=== PATIENT | male | born 1965 | race Caucasian/White ===

== ENCOUNTER 2019-11-16 05:33 | Emergency (ER) | payer OTHER, SELFPAY ==
[2019-11-16 05:37] VITALS: BP 154/109; PULSE 81; RESP 16; TEMP 35.7; O2SAT 98; BMI 21.5
--- NOTE | 2019-11-16 05:43 | PC.NURSE ---
EKG done at 0542 and shown to ER doctor
--- NOTE | 2019-11-16 05:46 | XRR_ITS ---
PROCEDURE INFORMATION: Exam: XR Chest, 1 View Exam date and time: 11/16/2019 6:21 AM Age: 53 years old Clinical indication: Other: Arrhythmia/palpitations; Patient HX: Not feeling well x 2 weeks. Heart palpitations and arrhythmia; Additional info: Cp TECHNIQUE: Imaging protocol: XR of the chest Views: 1 view. COMPARISON: No relevant prior studies available. FINDINGS: Lungs: Emphysematous change and interstitial prominence. Pleural space: No pleural effusion. Heart/Mediastinum: No cardiomegaly. Bones/joints: Unremarkable. XR/XR chest 1V portable [id number] IMPRESSION: Emphysematous change and interstitial prominence.
--- NOTE | 2019-11-16 05:46 | ECG_ITS ---
[facility] Test Date: 2019-11-16 Pat Name: Sanchez Woodall Department: Room: Gender: Male Clerk: : 1965 Requested By: Laura Bennett Order Number: [id number] Truong MD: Sruthi Balderas M.D. Measurements Intervals [place] Rate: 75 P: 85 [place]: 156 QRS: 89 QRSD: 120 T: 67 QT: 411 QTc: 462 Interpretive Statements SINUS RHYTHM POSSIBLE LEFT ATRIAL ENLARGEMENT [-0.1mV P WAVE IN V1/V2] POSSIBLE RIGHT VENTRICULAR CONDUCTION DELAY [RSR (QR) IN V1/V2] POSSIBLE INFERIOR MYOCARDIAL INFARCTION , PROBABLY OLD [30 ms Q WAVE IN II/aVF] No previous ECG available for comparison Electronically Signed On 11-17-2019 8:27:26 CDT by Sruthi Balderas M.D. [id number] charles
[2019-11-16 06:15] VITALS: BP 141/94; PULSE 70; RESP 18; O2SAT 99
[2019-11-16 06:21] LABS: Basophils % 0.2 %; Eosinophils # 0.1 10^3/uL (0.0-0.8); Eosinophils % 2.6 %; Hematocrit 47.4 % (42.0-52.0); Hemoglobin 15.5 g/dL (11.7-16.6); Lymphocytes # 1.6 10^3/uL (0.8-4.8); Lymphocytes % 30.1 %; Mean Corpuscular HGB Conc 32.7 g/dL (30.0-36.0); Mean Corpuscular Hemoglobin 31.3 pg (28.0-34.0); Mean Corpuscular Volume 95.6 fL (80-94); Monocytes # 0.4 10^3/uL (0.2-0.9); Monocytes % 7.6 %; Neutrophils % 59.3 %; Nucleated Red Blood Cells % 0 %; Platelet Count 257 10^3/cmm (130-400); Red Blood Count 4.96 10^6/uL (4.1-5.3); Red Cell Distribution Width 11.8 % (12.1-15.1); White Blood Count 5.4 10^3/uL (4.0-10.0)
[2019-11-16 06:33] LABS: Alanine Aminotransferase 11 U/L (0-41); Albumin Level 4.8 g/dL (3.5-5.2); Alkaline Phosphatase 69 IU/L (40-130); Anion Gap 14.8 (5-19); Aspartate Amino Transferase 14 U/L (0-40); Blood Urea Nitrogen 15 mg/dL (6-20); Calcium 9.3 mg/dL (8.5-10.5); Carbon Dioxide 26 mmol/L (22-29); Chloride 102 mmol/L (98-107); Globulin 2.7 g/dL (1.3-4.6); Glomerular Filtration Rate 100.4 mL/min (90-130); Glucose 116 mg/dL (65-115); Osmolality Calculated 290 mOsm/kg (285-295); Potassium 3.8 mmol/L (3.5-5.1); Sodium 139 mmol/L (136-145); Total Bilirubin 0.9 mg/dL (0.15-1.2); Total Protein 7.5 g/dL (6.6-8.7)
[2019-11-16 06:36] LABS: Troponin(5th) Baseline 6 ng/L (0-15)
--- NOTE | 2019-11-16 06:36 | ED_ITS ---
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 He presents today with a couple weeks of generally not feeling well. He noted some low-grade fever and cough a couple of weeks ago and since then has just felt very drained and fatigued. The past several nights he has had trouble sleeping due to palpitations every time he lays down. He has a questionable history of Brugada syndrome. He was diagnosed with it in 2010 after he had a syncopal episode at an urgent care. At that time he was ill with the flu. He was told that he had cardiac arrest but is unsure if that is accurate. He had a cardiac cath at that time which was negative. He wore a LifeVest for some time but since then has had other strategic marketing specialist said they did not think that he had Brugada's. He said after that incident in 2010 he had nighttime palpitations when he laid on his left side for about 4 years. That resolved and he has not had that problem again until just recently. Now anytime he lays down in any position he feels like he is having palpitations. He does not have pain with it but does have a tight sensation that goes up the back of his neck. He has no family history of Brugada or early sudden unexplained . He was not tested for COVID during the time when he had the fever and other symptoms. He denies any other current symptoms except for extreme daytime fatigue. He said he feels like he is dragging someone around wi th him. complaint: rapid heart beat, palpitations and irregular heart beat Onset (ago): week(s) (2, progressively getting worse) Duration: intermittent Severity: severe (Keeps him awake) Context: occurred during rest Arrhythmia history: other (Possible history of Brugada syndrome) Associated symptoms: Reports other (Extreme fatigue); Deny nausea or vomiting Review of Systems General: Reports: 10 or more systems reviewed and unremarkable except in HPI and below Const: Reports: fever(s) (A few weeks ago not current), fatigue, malaise, change in sleep pattern and daytime sleepiness; Denies: chills Eyes: Denies: change in vision ENMT: Denies: odynophagia Card: Reports: palpitations and irregular heart rhythm; Denies: chest pain or swelling of feet/ankles Resp: Denies: dyspnea, productive cough or non-productive cough GI: Denies: abdominal pain, nausea or vomiting : Denies: flank pain Musc: Denies: neck pain or back pain Skin/Breast: Denies: rash Neuro: Denies: headache(s), numbness in extremities or weakness in extremities Alfonso/Lymph: Denies: easy bruising or easy bleeding PFS ED PFSH: Medical History (Updated 11/16/19 @ 10:48 by Cherry Hernandez MD) Brugada syndrome Physical Exam Const: COMMON NORMALS: no acute distress, patient oriented x3, no limitations and alert GENERAL APPEARANCE: cooperative and comfortable HENMT: HEAD & SCALP: normal to inspection FACE & SINUS: normal facial exam Eye: GENERAL EYE: appearance normal, both eyes and all related structures Neck/C-Spine: COMMON NORMALS: supple, no meningeal signs and no JVD Chest: COMMONS NORMALS: normal inspection of the chest Resp: COMMON NORMALS: normal respiratory effort, No use of accessory muscles and clear to auscultation bilaterally AUSCULTATION: clear to auscultation bilaterally Cardio: COMMON NORMALS: no JVD, regular rate, regular rhythm and No murmurs present (Cardio) RATE: regular rate RHYTHM: regular rhythm GI: COMMON NORMALS: Normal to inspection, nondistended, normoactive bowel sounds present, Soft to palpation and non-tender INSPECTION: Yes normal to inspection AUSCULTATION: Yes normoactive bowel sounds PALPATION: Yes Soft to palpation Back/Pelvis: COMMON NORMALS: thoracic and lumbar spine normal to inspection Extremity: COMMON NORMALS: normal to inspection Neuro: COMMON NORMALS: patient oriented x3, moves all extremities, no focal motor deficits and no sensory deficits noted SENSORIUM/ORIENTATION: Yes alert MENINGEAL SIGNS: Yes no meningeal signs Psych: COMMON NORMALS: mental status grossly normal, cooperative and normal affect Skin: COMMON NORMALS: no rashes or lesions noted and turgor normal GENERAL SKIN EXAM: no rashes or lesions noted and turgor normal Course ED course: The patient was observed in the ED for quite some time. His troponins were negative. His EKG was normal as far as ischemia. His first EKG did suggest a potential Brugada's pattern. He had no arrhythmias noted while he was here. He did have some symptoms of feeling uncomfortable laying down. I spoke with the strategic marketing specialist on-call, Dr. Richter who agreed to follow-up closely. He agreed that he did not necessarily need to stay in the hospital. I tried to schedule a Holter monitor to be placed today but apparently they do not do that on Fridays. That cannot be done until Tuesday. I did put the order in but hopefully he will of seen cardiology before that. He understands to return if anything is new or different or worse. I did COVID test him as well mostly because of his previous symptoms as he is not currently symptomatic. COVID is known to affect the heart and this would be relevant information. Vital Signs: Vital signs: Vital Signs Temperature 96.2 F L 11/16/19 05:37 Pulse Rate 73 11/16/19 11:53 Respiratory Rate 16 11/16/19 11:53 Blood Pressure 126/76 11/16/19 11:53 Pulse Oximetry 98 11/16/19 11:53 MDM - Arrhythmia/Palpitations Lab Data: Labs: Lab Results 11/16/19 11/16/19 11/16/19 Range/Units 05:55 05:55 05:55 WBC 5.4 (4.0-10.0) 10^3/ uL RBC 4.96 (4.1-5.3) 10^6/u L Hgb 15.5 (11.7-16.6) g/dL Hct 47.4 (42.0-52.0) % MCV 95.6 H (80-94) fL MCH 31.3 (28.0-34.0) pg MCHC 32.7 (30.0-36.0) g/dL RDW 11.8 L (12.1-15.1) % Plt Count 257 (130-400) 10^3/c mm MPV 9.0 (7.4-10.4) fL Neut % (Auto) 59.3 % Lymph % (Auto) 30.1 % Glades % (Auto) 7.6 % Eos % (Auto) 2.6 % Baso % (Auto) 0.2 % Neut # (Auto) 3.20 (1.8-7.7) 10^3/u L Lymph # (Auto) 1.6 (0.8-4.8) 10^3/u L Glades # (Auto) 0.4 (0.2-0.9) 10^3/u L Eos # (Auto) 0.1 (0.0-0.8) 10^3/u L Baso # (Auto) 0.0 (0.0-0.1) 10^3/u L Nucleated RBC % (a uto) 0 % Nucleated RBCs # 0.0 /100WBC Sodium 139 (136-145) mmol/L Potassium 3.8 (3.5-5.1) mmol/L Chloride 102 (98-107) mmol/L Carbon Dioxide 26 (22-29) mmol/L Anion Gap 14.8 (5-19) BUN 15 (6-20) mg/dL Creatinine 0.8 (0.7-1.2) mg/dL GFR Calculation 100.4 (90-130) mL/min Glucose 116 H (65-115) mg/dL Calculated Osmolal ity 290 (285-295) mOsm/k g Calcium 9.3 (8.5-10.5) mg/dL Magnesium (1.7-2.3) mg/dL Total Bilirubin 0.9 (0.15-1.2) mg/dL AST 14 (0-40) U/L ALT 11 (0-41) U/L Alkaline Phosphata se 69 (40-130) IU/L Troponin T Baselin e 6 (0-15) ng/L Troponin T 120 Min remington (0-15) ng/L Delta Troponin T (0-10) ABS# Total Protein 7.5 (6.6-8.7) g/dL Albumin 4.8 (3.5-5.2) g/dL Globulin 2.7 (1.3-4.6) g/dL SARS-CoV-2 RNA (RT -PCR) (NOT DETECTED) 11/16/19 11/16/19 11/16/19 Range/Units 05:55 07:30 09:45 WBC (4.0-10.0) 10^3/ uL RBC (4.1-5.3) 10^6/u L Hgb (11.7-16.6) g/dL Hct (42.0-52.0) % MCV (80-94) fL MCH (28.0-34.0) pg MCHC (30.0-36.0) g/dL RDW (12.1-15.1) % Plt Count (130-400) 10^3/c mm MPV (7.4-10.4) fL Neut % (Auto) % Lymph % (Auto) % Glades % (Auto) % Eos % (Auto) % Baso % (Auto) % Neut # (Auto) (1.8-7.7) 10^3/u L Lymph # (Auto) (0.8-4.8) 10^3/u L Glades # (Auto) (0.2-0.9) 10^3/u L Eos # (Auto) (0.0-0.8) 10^3/u L Baso # (Auto) (0.0-0.1) 10^3/u L Nucleated RBC % (a uto) % Nucleated RBCs # /100WBC Sodium (136-145) mmol/L Potassium (3.5-5.1) mmol/L Chloride (98-107) mmol/L Carbon Dioxide (22-29) mmol/L Anion Gap (5-19) BUN (6-20) mg/dL Creatinine (0.7-1.2) mg/dL GFR Calculation (90-130) mL/min Glucose (65-115) mg/dL Calculated Osmolal ity (285-295) mOsm/k g Calcium (8.5-10.5) mg/dL Magnesium 2.3 (1.7-2.3) mg/dL Total Bilirubin (0.15-1.2) mg/dL AST (0-40) U/L ALT (0-41) U/L Alkaline Phosphata se (40-130) IU/L Troponin T Baselin e (0-15) ng/L Troponin T 120 Min remington 6.00 (0-15) ng/L Delta Troponin T 0 (0-10) ABS# Total Protein (6.6-8.7) g/dL Albumin (3.5-5.2) g/dL Globulin (1.3-4.6) g/dL SARS-CoV-2 RNA (RT -PCR) Not detected (NOT DETECTED) Discharge Plan Discharge Patient Disposition: Home Clinical Impression: Palpitations, Brugada syndrome Condition: Stable Prescriptions: No Action No Known Home Medications RF: 0 Discharge Orders: Discharge Order (Routine); Ordered 11/16/19 Ordered By: Cherry Hernandez Referrals: Valarie Acuna MD [Physician] - 11/22/19 9:30 am Discharge Diet: Usual diet Discharge Activity: Limit activity as instructed Patient Instructions: Palpitations (ED) Activity Restrictions/Additional Instructions: Follow-up with the strategic marketing specialist on Tuesday. A monitor cannot be placed until Tuesday. Return to the emergency room immediately for worsening symptoms, chest pain, passing out. Rest and avoid caffeinated beverages. Discharge Date/Time: 11/16/19 11:58 Coding Level of Care Code ED [place] [facility] for Chg Fwd Exam Comprehensive
[2019-11-16 06:45] LABS: Magnesium 2.3 mg/dL (1.7-2.3)
[2019-11-16 06:53] VITALS: BP 126/84; PULSE 80; RESP 16; O2SAT 98
--- NOTE | 2019-11-16 07:46 | ECG_ITS ---
[facility] Test Date: 2019-11-16 Pat Name: Sanchez Woodall Department: Room: Gender: Male Opener: : 1965 Requested By: Laura Bennett Order Number: [id number] Alexi MD: Sruthi Balderas M.D. Measurements Intervals [place] Rate: 70 P: 83 AK: 152 QRS: 83 QRSD: 113 T: 72 QT: 408 QTc: 443 Interpretive Statements SINUS RHYTHM INCOMPLETE RIGHT BUNDLE BRANCH BLOCK Compared to ECG 11/16/2019 05:42:41 Incomplete right bundle-branch block now present Myocardial infarct finding no longer present Electronically Signed On 11-17-2019 9:05:17 CDT by Sruthi Balderas M.D. [id number]
[2019-11-16 09:00] VITALS: BP 126/76; PULSE 73; RESP 16; O2SAT 98
[2019-11-16 10:29] LABS: Troponin 5 2HR Delta 0 ABS# (0-10)
[2019-11-16 11:53] VITALS: BP 126/76; PULSE 73; RESP 16; O2SAT 98
--- NOTE | 2019-11-16 13:32 | DCPLANNER ---
manager billing was asked to schedule a follow up appointment for patient on November 18. manager billing called [facility], spoke with Fina, a follow up appointment was scheduled for October at 9:[address] Acuna. manager billing was told that clinic will try and move appointment up to Tuesday, if something comes open. manager billing informed ED physician of the appointment, and that if appointment could be moved up then the clinic will move appointment. ED physician wanted a 48 hour halter monitor ordered for patient. manager billing faxed order to [facility], and called [facility], spoke with Fina. manager billing told Fina that if appointment could not be moved up for patient for Tuesday, then ED physician wanted a monitor placed for patient. Clinic will take care of getting the monitor scheduled if appointment could not be moved up.
[2019-11-17 16:43] LABS: Quest SARS-CoV-2 RNA NOT DETECTED (NOT DETECTED)
--- NOTE | 2019-11-21 08:06 | DCPLANNER ---
Patient has a follow up appointment scheduled for , November 22, 2019 at 9:[address] Acuna. Clinic will call patient with appointment information.
--- NOTE | 2019-11-30 14:27 | DCPLANNER ---
Patient had an appointment scheduled for 11.22.19 with [facility] - appointment canceled at this time.
--- NOTE | 2019-12-14 15:45 | DCPLANNER ---
Patient has a halter monitor scheduled for Tuesday, December 24, 2019. Clinic will call patient with that appointment information.
== END 2019-11-16 11:58 | disposition home or self-care (01) ==
PROVIDERS: Emergency Medicine; Emergency Provider Emergency Medicine
DX: R00.2 Palpitations (principal); I49.8 Other specified cardiac arrhythmias
CPT/HCPCS: 12345; 71045; 80053; 83735; 84484; 85025; 87635; 93005; 99283; 99284

== ENCOUNTER 2021-05-11 15:42 | Emergency (ER) | payer MEDICAID, SELFPAY ==
[2021-05-11 15:59] VITALS: BP 169/97; PULSE 87; RESP 18; TEMP 36.6; O2SAT 97
--- NOTE | 2021-05-11 17:27 | ECG_ITS ---
[facility] Test Date: 2021-05-11 Pat Name: Sanchez Woodall Department: Room: Gender: Male Quotation Checker: : 1965 Requested By: Frida Liang Order Number: [id number] Alexi MD: Erasto Richter M.D. Measurements Intervals [place] Rate: 75 P: 85 AK: 132 QRS: 91 QRSD: 120 T: 72 QT: 403 QTc: 451 Interpretive Statements SINUS RHYTHM POSSIBLE LEFT ATRIAL ENLARGEMENT [-0.1mV P-WAVE IN V1/V2] BORDERLINE RIGHT AXIS DEVIATION [QRS AXIS > 90] POSSIBLE RIGHT VENTRICULAR CONDUCTION DELAY [RSR (QR) IN V1/V2] MODERATE ST DEPRESSION [0.05+ mV ST DEPRESSION] Compared to ECG 11/16/2019 07:36:26 ST (T wave) deviation now present Incomplete right bundle-branch block no longer present Electronically Signed On 05-11-2021 21:02:11 CDT by Erasto Richter M.D. [email or web address] [email or web address].Omiro/[id number]
--- NOTE | 2021-05-11 17:27 | XRR_ITS ---
PROCEDURE INFORMATION: Exam: XR Chest Exam date and time: 05/11/2021 5:27 PM Age: 55 years old Clinical indication: Pain; Chest pressure; Prior surgery; Additional info: Chest pain TECHNIQUE: Imaging protocol: XR of the chest. Views: 1 view. COMPARISON: CR XR chest 1V portable [id number] 11/16/2019 5:55 AM FINDINGS: Lungs: Unremarkable. No consolidation. Pleural spaces: Unremarkable. No pleural effusion. No pneumothorax. Heart/Mediastinum: Unremarkable. No cardiomegaly. Bones/joints: Unremarkable. XR/XR chest 1V portable [id number] IMPRESSION: No acute findings.
--- NOTE | 2021-05-11 19:27 | ECG_ITS ---
[facility] Test Date: 2021-05-11 Pat Name: Sanchez Woodall Department: Room: Gender: Male Bolt Sorter: : 1965 Requested By: Frida Liang Order Number: [id number] Alexi MD: Erasto Richter M.D. Measurements Intervals [place] Rate: 83 P: 86 PA: 146 QRS: 93 QRSD: 118 T: 81 QT: 397 QTc: 469 Interpretive Statements SINUS RHYTHM RIGHT ATRIAL ENLARGEMENT [0.3mV P-WAVE] BORDERLINE RIGHT AXIS DEVIATION [QRS AXIS > 90] INCOMPLETE RIGHT BUNDLE BRANCH BLOCK [90+ ms QRS DURATION, TERMINAL R IN V1/V2, 40+ ms S IN I/aVL/V4/V5/V6] MODERATE VOLTAGE CRITERIA FOR LVH, CONSIDER NORMAL VARIANT [MEETS CRITERIA IN ONE OF: R(aVL), S(V1), R(V5), R(V5/V6)+S(V1)] Compared to ECG 05/11/2021 16:08:02 Incomplete right bundle-branch block now present ST (T wave) deviation no longer present Electronically Signed On 05-11-2021 21:10:13 CDT by Erasto Richter M.D. [email or web address] state hospitalDealerTracklakehealth beachwood [facility].[employer]store/[id number]
[2021-05-11 20:01] LABS: Basophils % 0.4 %; Eosinophils # 0.1 10^3/uL (0.0-0.8); Eosinophils % 1.4 %; Hematocrit 44.3 % (42.0-52.0); Hemoglobin 14.5 g/dL (11.7-16.6); Lymphocytes # 1.7 10^3/uL (0.8-4.8); Mean Corpuscular HGB Conc 32.7 g/dL (30.0-36.0); Mean Corpuscular Hemoglobin 31.5 pg (28.0-34.0); Mean Corpuscular Volume 96.1 fl (80-94); Mean Platelet Volume 8.8 fL (7.4-10.4); Monocytes # 0.5 10^3/uL (0.2-0.9); Monocytes % 6.8 %; Neutrophils # 4.73 10^3/uL (1.8-7.7); Neutrophils % 67.1 %; Nucleated Red Blood Cells % 0 %; Platelet Count 281 10^3/cmm (130-400); Red Blood Count 4.61 10^6/uL (4.1-5.3); Red Cell Distribution Width 12.1 % (12.1-15.1); White Blood Count 7.1 10^3/uL (4.0-10.0)
--- NOTE | 2021-05-11 20:26 | ED_ITS ---
HPI - Chest Pain General: Chief Complaint: Chest Pain Stated Complaint: Chest discomfort Time Seen by Provider: 05/11/21 20:26 History of Present Illness: Mr. Woodall is a 55-year-old gentleman with significant past medical history of Brugada syndrome who presents to the emergency department due to abnormal heart rate. He reports initially being diagnosed with Brugada greater than 10 years ago. He had an episode of racing heart and subsequently syncope. He underwent an ischemic cardiac evaluation which was negative however was diagnosed with Brugada. He discussed with an electrophysiology and elected not to get a ICD at that time. He denies essentially any history since then of heart issues. 6 days ago he took a melatonin which she has not taken before and shortly thereafter developed racing heart. He had approximately 2 and half to 3 days of heart rate in the 160s to 200s associated with generalized symptoms though no shortness of breath or lightheadedness. This spontaneously resolved with a thumping feeling in his chest however since that time he has continued to feel unwell. He describes intensity of symptoms as moderate to severe. Course persisted however is now resolved. No other specific changes in health, exacerbating, or relieving factors identified. Patient denies any other medical history and is quite fit. Pertinent past history: other Onset (ago): day(s) Timing of current episode: constant and now resolved Severity: moderate Review of Systems General: Reports: 10 or more systems reviewed and unremarkable except in HPI and below PFSH ED PFSH: Medical History Brugada syndrome History of left heart catheterization (LHC) Social History Smoking and tobacco status: never smoked Alcohol intake: never Physical Exam Const: COMMON NORMALS: alert GENERAL APPEARANCE: cooperative and well developed HENMT: COMMON NORMALS: normocephalic and atraumatic HEAD & SCALP: normocephalic and atraumatic Eye: COMMON NORMALS: conjunctivae normal CONJUNCTIVA: Yes conjunctivae normal SCLERA: sclerae normal Neck/C-Spine: COMMON NORMALS: supple GENERAL: Yes trachea midline Resp: COMMON NORMALS: normal respiratory effort EFFORT & INSPECTION: Yes able to speak in complete sentences Cardio: COMMON NORMALS: regular rate and regular rhythm RATE: regular rate RHYTHM: regular rhythm GI: COMMON NORMALS: Soft to palpation PALPATION: Yes Soft to palpation and No Tenderness to palpation present (GI) Extremity: GENERAL: Yes normal exam except as noted and No edema Neuro: COMMON NORMALS: moves all extremities SENSORIUM/ORIENTATION: Yes alert and No Orientation impaired Psych: COMMON NORMALS: mental status grossly normal and Normal thought process present THOUGHT PROCESS: Normal thought process present Course ED course: - Patient was seen and evaluated by me at bedside - Patient placed on cardiac monitors, IV access obtained - Initial evaluation notable for exam as above - Labs notable for no leukocytosis, normal hemoglobin. Metabolic panel with trace increase in BUN, initial troponin negative with symptoms greater than 6 hours ago. - Imaging notable for negative chest x-ray - Upon serial reexamination after treatment the patient was similar - Based on patient history, evaluation, labs, and imaging as interpreted the most likely cause of the patient's condition is tachyarrhythmia that resolved prior to ED presentation. I discussed this case with cardiology, plan to have patient get Holter monitor and follow-up with cardiology. - The results of ED evaluation were discussed with the patient including prescriptions and/or symptomatic cares (if applicable) including appropriate and responsible use, followup plan, and return precautions. The patient verbalized understanding and felt safe for discharge. - Patient discharged in satisfactory condition. Note: Click bubbles or prepopulated lechuga in note writing are used for assistance with data collection and billing and are inherently more limited than narrative and other text portions of this note. Please use narrative for additional clinical history and defer to narrative/free test for any case of contradictory information. If information appears in only free text or click bubble it should be considered present or absent as reported. Please contact note insurance underwriter sales for clarifications of clinical information or contradictory information. MDM is a brief summary, contradictory or erroneous seeming information should be clarified and full note should be reviewed. Vital Signs: Vital signs: Vital Signs Temperature 98 F 05/11/21 15:59 Pulse Rate 71 05/11/21 22:20 Respiratory Rate 16 05/11/21 22:20 Blood Pressure 149/89 05/11/21 22:20 Pulse Oximetry 99 05/11/21 22:20 MDM - Chest Pain Medical Decision Making 55-year-old gentleman with history of Brugada who does not have ICD presenting with 3-day history of rapid heart rate in the 160-200 range however this resolved prior to ED presentation by a number of days. No obvious cause identified on electrolytes or laboratory studies. Discussed case with car diology. Patient desires discharge we will plan to have close outpatient follow-up and patient given strict return precautions. Medical Records I reviewed the patient's medical records. Lab Data I reviewed the patient's lab results. : 05/11/21 19:52 05/11/21 19:52 Radiology Impressions Chest X-Ray 05/11/21 17:27 IMPRESSION: No acute findings. Laboratory Results WBC 7.1 10^3/uL (4.0-10.0) 05/11/21 19:52 RBC 4.61 10^6/uL (4.1-5.3) 05/11/21 19:52 Hgb 14.5 g/dL (11.7-16.6) 05/11/21 19:52 Hct 44.3 % (42.0-52.0) 05/11/21 19:52 MCV 96.1 fl (80-94) H 05/11/21 19:52 MCH 31.5 pg (28.0-34.0) 05/11/21 19:52 MCHC 32.7 g/dL (30.0-36.0) 05/11/21 19:52 RDW 12.1 % (12.1-15.1) 05/11/21 19:52 Plt Count 281 10^3/cmm (130-400) 05/11/21 19:52 MPV 8.8 fL (7.4-10.4) 05/11/21 19:52 Neut % (Auto) 67.1 % 05/11/21 19:52 Lymph % (Auto) 24.0 % 05/11/21 19:52 [place] % (Auto) 6.8 % 05/11/21 19:52 Eos % (Auto) 1.4 % 05/11/21 19:52 Baso % (Auto) 0.4 % 05/11/21 19:52 Neut # (Auto) 4.73 10^3/uL (1.8-7.7) 05/11/21 19:52 Lymph # (Auto) 1.7 10^3/uL (0.8-4.8) 05/11/21 19:52 [place] # (Auto) 0.5 10^3/uL (0.2-0.9) 05/11/21 19:52 Eos # (Auto) 0.1 10^3/uL (0.0-0.8) 05/11/21 19:52 Baso # (Auto) 0.0 10^3/uL (0.0-0.1) 05/11/21 19:52 Nucleated RBC % (auto) 0 % 05/11/21 19:52 Nucleated RBCs # 0.0 /100WBC 05/11/21 19:52 Sodium 137 mmol/L (136-145) 05/11/21 19:52 Potassium 4.2 mmol/L (3.5-5.1) 05/11/21 19:52 Chloride 101 mmol/L (98-107) 05/11/21 19:52 Carbon Dioxide 25 mmol/L (22-29) 05/11/21 19:52 Anion Gap 15.2 (5-19) 05/11/21 19:52 BUN 21 mg/dL (6-20) H 05/11/21 19:52 Creatinine 0.7 mg/dL (0.7-1.2) 05/11/21 19:52 GFR Calculation 116.2 mL/min (90-130) 05/11/21 19:52 Glucose 106 mg/dL (65-115) 05/11/21 19:52 Calculated Osmolality 287 mOsm/kg (285-295) 05/11/21 19:52 Calcium 8.7 mg/dL (8.5-10.5) 05/11/21 19:52 Magnesium 2.3 mg/dL (1.7-2.3) 05/11/21 19:52 Troponin T Baseline 7 ng/L (0-15) 05/11/21 19:52 TSH 1.89 uIU/mL (0.27-4.20) 05/11/21 19:52 EKG Data EKG 1: I personally reviewed and interpreted this EKG as follows: EKG interpretation date: 05/11/21 EKG interpretation time: 20:45 Interpretation: Twelve-lead EKG shows a regular rhythm at a rate of 83. WV interval 146, QRS duration 118, QTc 437. Normal axis. Interpretation: Sinus rhythm. Nonspecific ST segment abnormalities. V1 and V2 abnormalities noted. Slight limited interpretation secondary to baseline. Discharge Plan Discharge Patient Disposition: Home Clinical Impression: Tachyarrhythmia Condition: Stable Prescriptions: No Action No Known Home Medications 0RF Discharge Orders: Discharge ED (Routine); Ordered 05/11/21 Ordered By: Rubio Zhu Other Ambulatory Orders: ECG holter monitor 3 Days (Routine) Timeframe: [id number] Facility: [facility] - Location: Radiology Ordered By: Rubio Zhu Discharge Diet: Usual diet Discharge Activity: Resume usual activity Patient Instructions: Tachycardia (ED) Activity Restrictions/Additional Instructions: Thank you for visiting the emergency department. You were seen and evaluated f or rapid heart rate which resolved prior to ED evaluation. Based on ED evaluation there is no asked cause that I can identify for your arrhythmia. You do require further evaluation. You are at high risk given your history of Brugada. I will order a Holter monitor and also I will message case management for assistance and close cardiology follow-up. Please establish with a primary care provider. Please return to the emergency department for recurrence of symptoms or anything else that you are concerned about and feel needs emergency department evaluation. Coding Level of Care Code ED Biological Lab Technician for [employer] [facility] Exam Comprehensive
[2021-05-11 20:33] VITALS: BP 143/80; PULSE 66; RESP 16; O2SAT 98
[2021-05-11 20:34] LABS: Troponin(5th) Baseline 7 ng/L (0-15)
[2021-05-11 20:35] LABS: Anion Gap 15.2 (5-19); Blood Urea Nitrogen 21 mg/dL (6-20); Calcium 8.7 mg/dL (8.5-10.5); Carbon Dioxide 25 mmol/L (22-29); Chloride 101 mmol/L (98-107); Glomerular Filtration Rate 116.2 mL/min (90-130); Glucose 106 mg/dL (65-115); Osmolality Calculated 287 mOsm/kg (285-295); Potassium 4.2 mmol/L (3.5-5.1); Sodium 137 mmol/L (136-145)
[2021-05-11 21:10] LABS: Magnesium 2.3 mg/dL (1.7-2.3); Thyroid Stimulating Hormone 1.89 uIU/mL (0.27-4.20)
[2021-05-11 22:20] VITALS: BP 149/89; PULSE 71; RESP 16; O2SAT 99
--- NOTE | 2021-05-20 15:28 | DCPLANNER ---
Addendum entered by Shantal Lee 07/24/21 18:26: Appointment was cancelled. Original Note: poker room manager had message to schedule a follow up appointment for patient with [facility], and a halter monitor. Patient did not have a primary care physician listed in chart. poker room manager called patient to confirm who his primary care physician was. Patient stated that he would rather wait and see the anti tank missileman before scheduling the halter monitor. If the anti tank missileman thinks that patient needs the halter monitor then the anti tank missileman can order the monitor. A follow up appointment was scheduled for June at 2:[address] Acuna. poker room manager called patient and gave patient the appointment information.
== END 2021-05-11 22:48 | disposition home or self-care (01) ==
PROVIDERS: Emergency Medicine; Emergency Provider Emergency Medicine
DX: R00.0 Tachycardia, unspecified (principal); I49.8 Other specified cardiac arrhythmias
CPT/HCPCS: 71045; 80048; 83735; 84443; 84484; 85025; 93005; 99284

== ENCOUNTER → 2021-09-10 10:42 | Outpatient (BNVA) | payer MEDICAID, SELFPAY | PROVIDERS: Visit Provider Internal Medicine Cardiovascular Disease | DX: I49.8 Other specified cardiac arrhythmias (principal) | CPT/HCPCS: 99203 ==